=== PATIENT | male | born 1975 | race Two or more races ===

== ENCOUNTER 2017-08-29 18:29 | Emergency (ER) | payer SELFPAY ==
[2017-08-29 18:43] VITALS: BP 122/78; PULSE 70; RESP 18; TEMP 98.7; O2SAT 98
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
[2017-08-29] MEDS ORDERED: Tdap Vaccine 0.5 ml Vial (10-64 yrs) IM ONE ×2 (20:46→20:58)
--- NOTE | 2017-08-30 09:12 | RAD ---
PROCEDURE: Radiographs of the Right Shoulder HISTORY: Shoulder injury. COMPARISON: No prior. FINDINGS: BONES: Normal. No fracture. JOINTS: Normal. Glenohumeral and acromioclavicular joints preserved. No significant osteoarthritis. SOFT TISSUES: Normal. OTHER FINDINGS: None. IMPRESSION: Normal radiographs of the right shoulder.
--- NOTE | 2017-08-30 09:14 | RAD ---
PROCEDURE: Radiographs of the Lumbar Spine. HISTORY: BACK PAIN COMPARISON: No prior. FINDINGS: BONES: Normal alignment. No listhesis. No fracture. DISC SPACES: Disc space heights maintained. No significant degenerative spondylosis OTHER FINDINGS: Moderate amount stool seen within the ascending and transverse colon consistent with mild fecal retention/constipation. IMPRESSION: Unremarkable radiographs of the lumbar spine.
--- NOTE | 2017-08-30 09:20 | RAD ---
PROCEDURE: Radiographs of the left tibia and fibula. HISTORY: LEG PAIN COMPARISON: None available. TECHNIQUE: Frontal and lateral views obtained. FINDINGS: BONES: No fracture or destructive lesion. There are at least 2 tiny sclerotic densities overlying the medial femoral condyles/patella that probably represent small bone islands or osteomas. JOINT SPACES: Unremarkable. OTHER FINDINGS: None. IMPRESSION: No evidence of acute displaced fracture nor dislocation. If symptoms persist or occult fracture suspected clinically recommend repeat radiographs in 5-10 days as most fractures should become radiographically evident in this timeframe. Alternatively, consider followup CT scan if necessary.
--- NOTE | 2017-08-30 09:25 | RAD ---
PROCEDURE: Right Hand Radiographs. HISTORY: HAND INJURY COMPARISON: None. FINDINGS: BONES: Normal. No fracture. JOINTS: Normal. No osteoarthritic changes. SOFT TISSUES: Normal. OTHER FINDINGS: None. IMPRESSION: No definitive radiographic evidence of acute displaced fracture nor dislocation. If symptoms persist or occult fracture suspected clinically recommend repeat radiographs in 5-10 days as most fractures should become radiographically evident in this timeframe
== END 2017-08-29 21:46 | disposition home or self-care (01) ==
LOC: H.ER 18:29
DX: M79.605 Pain in left leg (principal); M79.601 Pain in right arm; V43.52XA Car driver injured in collision with other type car in traffic accident, initial encounter; Y92.410 Unspecified street and highway as the place of occurrence of the external cause
CPT/HCPCS: 72100; 73030; 73130; 73590; 90471; 90715; 96372; 99283; J1885